=== PATIENT | female | born 1955 | race Caucasian/White ===

== ENCOUNTER 2019-09-22 05:36 | Emergency (ER) | payer MEDICAID ==
[~2019-09-22] VITALS: Ht 162.6 cm; Wt 82.6 kg
[2019-09-22 07:42] LABS: BASOPHIL % 0.5 % (0-2); PLATELET COUNT 239 x10^3mcL (130-400); RED CELL DISTRIBUTION WIDTH 13.7 % (11.5-14.5)
[2019-09-22 08:01] LABS: CALCIUM 9.5 mg/dL (8.5-10.1); CARBON DIOXIDE 31.1 mmol/L (21-32); CHLORIDE SERUM 99 mmol/L (98-107); CREATININE SERUM 0.6 mg/dL (0.6-1.0); GFR1 > 60 mL/min; GLUCOSE SERUM 127 mg/dL (74-106); SODIUM SERUM 133 mmol/L (136-145)
[2019-09-22 08:05] LABS: ALBUMIN 3.7 g/dL (3.4-5.0); ALKALINE PHOSPHATASE 135 U/L (46-116); ALT/SGPT 50 U/L (14-59); AST/SGOT 31 U/L (15-37); BILIRUBIN TOTAL 0.26 mg/dL (0.20-1.00)
[2019-09-22 08:50] VITALS: BP 149/58
== END 2019-09-22 08:50 | disposition home or self-care (01) ==
LOC: ED 05:36
PROVIDERS: Emergency Medicine
DX: G44.209 Tension-type headache, unspecified, not intractable (principal); M62.830 Muscle spasm of back; E11.9 Type 2 diabetes mellitus without complications; R11.0 Nausea; M54.2 Cervicalgia
CPT/HCPCS: 20552; J2001; Q0092

== ENCOUNTER 2019-09-30 13:51 | Emergency (ER) | payer MEDICAID ==
[~2019-09-30] VITALS: Ht 167.6 cm; Wt 79.4 kg
[2019-09-30 14:46] LABS: BASOPHIL % 0.3 % (0-2); PLATELET COUNT 270 x10^3mcL (130-400); RED CELL DISTRIBUTION WIDTH 13.8 % (11.5-14.5)
[2019-09-30 15:01] LABS: CALCIUM 9.8 mg/dL (8.5-10.1); CARBON DIOXIDE 27.6 mmol/L (21-32); CHLORIDE SERUM 99 mmol/L (98-107); CREATININE SERUM 0.7 mg/dL (0.6-1.0); GFR1 > 60 mL/min; GLUCOSE SERUM 122 mg/dL (74-106); POTASSIUM SERUM 4.4 mmol/L (3.5-5.1); SODIUM SERUM 133 mmol/L (136-145)
[2019-09-30 15:06] LABS: ALKALINE PHOSPHATASE 151 U/L (46-116); ALT/SGPT 53 U/L (14-59); AST/SGOT 32 U/L (15-37); BILIRUBIN TOTAL 0.21 mg/dL (0.20-1.00); TOTAL PROTEIN, SERUM 7.5 g/dL (6.4-8.2)
[2019-09-30 18:21] VITALS: BP 125/50
== END 2019-09-30 18:21 | disposition home or self-care (01) ==
LOC: ED 13:51
DX: G44.209 Tension-type headache, unspecified, not intractable (principal); E11.9 Type 2 diabetes mellitus without complications; M19.90 Unspecified osteoarthritis, unspecified site
CPT/HCPCS: 82962; J1200; J1885; J2765; Q0092